=== PATIENT | female | born 1955 | race Caucasian/White ===

== ENCOUNTER → 2021-09-26 07:00 | Outpatient (CLI) | payer MEDICARE, OTHER, SELFPAY ==
[2021-09-26 10:51] LABS: Free T3, Triiodothyronine Free 4.69 pg/mL (2.77-5.27); Free T4, Direct Thyroxine 0.88 ng/dL (0.78-2.19)
[2021-09-26 14:51] LABS: Testosterone 28.2 ng/dL (5.71-77.0)
[2021-09-27 05:29] LABS: Dehydroepiandrosterone Sulfate 91.5 ug/dL (20.4-186.6)
[2021-10-01 09:34] LABS: Triiodothyronine T3 Reverse 13.1 ng/dL (9.2-24.1)
== END ==
PROVIDERS: PCP Family Medicine; Referring Provider Allergy & Immunology; Visit Provider Allergy & Immunology
DX: E03.9 Hypothyroidism, unspecified (principal); N95.9 Unspecified menopausal and perimenopausal disorder
CPT/HCPCS: 36415; 82627; 84403; 84439; 84481; 84482

== ENCOUNTER 2021-12-22 22:37 | Emergency (ER) | payer MEDICARE, OTHER, SELFPAY ==
[2021-12-22 22:45] VITALS: BP 177/79; PULSE 72; RESP 18; TEMP 36.3; O2SAT 96; BMI 21.0
--- NOTE | 2021-12-22 23:00 | PC.NURSE ---
Here with left flank pain that started today - radiation to the left groin - states that she has had kidney stones in the past and this feels like the same - states that she has being treated for a UTI and is on Levaquin - denies nausea/vomiting
--- NOTE | 2021-12-22 23:08 | ED.FEMALEGU ---
HPI - Female Genitourinary General Chief complaint: Urogenital-Female Stated complaint: Kidney stones Time Seen by Provider: 12/22/21 22:39 Source: patient Mode of arrival: Ambulatory History of Present Illness HPI Narrative: 66-year-old female nonsmoker with history of kidney stones many years ago presents with her in the chief complaint of about 2 weeks' worth of left flank pain and an increase in severity of her pain tonight. She states that she has been seen by her primary care provider and is currently on her 2nd round of antibiotics to treat a urinary tract infection. She denies any fever or chills and states that her urinary symptoms such as dysuria, frequency and urgency seemed to be greatly improved but she has ongoing flank pain. She states this pain has been persistent but tonight it intensified and seems to radiate into her groin. She denies any change in bowel habits. Related Data Allergies Allergy/AdvReac Type Severity Reaction Status Date / Time No Known Drug Allergies Allergy Verified 12/22/21 22:51 Review of Systems Review of Systems Narrative: GENERAL: Denies chills, fatigue, malaise, fever, sweats. HEENT: Denies sinus pain, ear pain, sore throat, difficulty swallowing, dizziness. RESPIRATORY: Denies dyspnea, cough, wheezing, hemoptysis, sputum. CARDIOVASCULAR: Denies chest pain, palpitations, orthopnea, edema, GASTROINTESTINAL: Denies nausea, vomiting, abdominal pain, diarrhea, constipation, melena. : See HPI MUSCULOSKELETAL: denies weakness, joint pain, or bony pain SKIN: Denies rash, skin lesions, or other NEUROLOGIC: Denies weakness, headache, numbness, change in speech, confusion, seizures, incoordination. PSYCHIATRIC: No concerning psychosocial issues. 12 point review of systems is negative except for those stated above Exam Narrative Exam Narrative: GENERAL: [66] year old patient appears stated age. Well-developed patient, in no obvious distress, resting comfortably HEAD: Atraumatic. Normocephalic. EYES: Pupils equal round and reactive. Extraocular motions intact. No scleral icterus. No injection or drainage. ENT: Nose without bleeding, purulent drainage. Throat without erythema, tonsillar hypertrophy or exudate. Airway patent. NECK: Trachea midline. Non tender CARDIOVASCULAR: Regular rate and rhythm without murmurs, gallops, or rubs. RESPIRATORY: Clear to auscultation. Breath sounds equal bilaterally. No wheezes, rales, or rhonchi. GASTROINTESTINAL: Abdomen soft, non-tender, nondistended. EXTREMITIES: No edema or joint tenderness. BACK: Nontender without deformity or crepitance. Minimal left-sided CVA tenderness NEURO: AOx3. SKIN: No rash or erythema of visible areas Initial Vital Signs Initial Vital Signs: Vital Signs Temperature 97.4 F L 12/22/21 22:45 Pulse Rate 72 12/22/21 22:45 Respiratory Rate 18 12/22/21 22:45 Blood Pressure 177/79 H 12/22/21 22:45 Pulse Oximetry 96 12/22/21 22:45 Oxygen Delivery Method 12/22/21 22:45 Course Orders Ordered: ED Orders 12/22/21 22:50 Urine Culture Stat Urine Microscopic Stat 12/22/21 23:00 Complete Blood Count AUTO DIFF Stat Comprehensive Metabolic Panel Stat Lipase Stat 12/22/21 23:10 CT kidney ureter bladder (KUB) Stat Discontinued Medications Ketorolac Tromethamine (Ketorolac 30 Mg/Ml Vial) 15 mg IV NOW ONE Stop: 12/22/21 23:11 Ondansetron HCl (Ondansetron 4 Mg/2 Ml Inj) 4 mg IV NOW ONE Stop: 12/22/21 22:54 Reevaluation(s) Reevaluation #1: Significant improvement in above-stated therapies Vital Signs Vital signs: Vital Signs - 8 hr 12/22/21 22:45 Temperature 97.4 F L Pulse Rate 72 Respiratory Rate 18 Blood Pressure 177/79 H Pulse Oximetry 96 Oxygen Delivery Method Room Air MDM - Female Genitourinary Lab Data Result diagrams: 12/22/21 23:00 12/22/21 23:00 Labs: Lab Results 12/22/21 12/22/21 12/22/21 Range/Units 22:50 23:00 23:00 WBC 8.4 (4.5-11.0) X10^3/uL RBC 4.19 (4.0-5.2) X10^6/uL Hgb 12.6 (12.0-16.0) g/dL Hct 37.0 (36-46) % MCV 88.3 (80-100) fL MCH 30.2 (26-34) PG MCHC 34.2 (30-36) % RDW 12.4 (11.6-14.8) % Plt Count 250 (150-400) X10^3/uL Neut % (Auto) 62.2 (50-75) % Lymph % (Auto) 29.7 (25-40) % [place] % (Auto) 6.6 (3-14) % Eos % (Auto) 1.0 L (2-4) % Baso % (Auto) 0.5 (0-2) % Neut # (Auto) 5200 (3291-6963) /uL Lymph # (Auto) 2500 (5018-0478) /uL [place] # (Auto) 600 (0-900) /uL Eos # (Auto) 100 (0-450) /uL Baso # (Auto) 0 (0-100) /uL Sodium 135 L (137-145) mmol/L Potassium 4.2 (3.4-5.1) mmol/L Chloride 101 (98-107) mmol/L Carbon Dioxide 26 (22-32) mmol/L BUN 16 (7-17) mg/dL Creatinine 0.49 L (0.52-1.04) mg/dL Estimated GFR > 60 (>60) mL/min BUN/Creatinine Ratio 32.7 H (6-22) Glucose 126 H (80-110) mg/dL Calcium 9.5 (8.4-10.2) mg/dL Total Bilirubin 0.2 (0.2-1.3) mg/dL AST 24 (14-36) IU/L ALT 22 (<35) IU/L Alkaline Phosphatase 90 (38-126) U/L Total Protein 6.8 (6.3-8.2) g/dL Albumin 3.9 (3.5-5.0) g/dL Globulin 2.9 (1.7-4.1) g/dL Albumin/Globulin Ratio 1.3 (1.0-2.8) Lipase 81 (23-300) U/L Urine RBC 1-5/hpf (0-5/HPF) Urine WBC 0-1/hpf (0-5/HPF) Ur Squamous Epith Cells 0-1 /hpf (0-5/HPF) Urine Bacteria None seen (None) Ur Culture Indicated? Specimen cultured Urine Dip Bedside Urine Glucose Negative Bedside Urine Bilirubin - Negative Bedside Urine Ketone - Negative Urine Specific [place] 1.015 Bedside Urine Occult Blood +++ Bedside Urine pH 6.0 Bedside Urine Protein - Negative Bedside Urine Urobilinogen - Negative Bedside Urine Nitrite - Negative Bedside Urine Leukocytes - Negative Esterase Imaging Data CT scan - abdomen/pelvis: Radiologist's Impression: [address] [address] [address] Scan Report Signed Patient: Katelin Ellington MR#: [id number] : 1955 Acct:[id number] Age/Sex: 66 / F Date of Service: 12/22/21 Loc: ED Accession Number: [id number] ?? Procedure: CT kidney ureter bladder (KUB) Ordering Provider: Avni Burns D.O. PROCEDURE:? CT KIDNEY URETER BLADDER (KUB) ? INDICATIONS:? flank pain, recent UTI, history of stones ? TECHNIQUE:? Axial sections were acquired from the lung bases to the pubic symphysis.? Coronal and sagittal reformats were performed.? For radiation dose reduction, the following was used: ?automated exposure control, adjustment of mA and/or kV according to patient size.? ? COMPARISON:? None. ? FINDINGS:? Image quality:? Excellent.? ? Lung bases:? There is minimal atelectasis.? ? Heart:? Heart is normal in size.? There is a small hiatal hernia. ? URINARY: Right Kidney and Ureter: ? No hydronephrosis.? There is a 0.2 cm nonobstructing stone within the right kidney.? No hydroureter.? ? Left Kidney and Ureter: ? There is an obstructing urinary stone in the proximal left ureter measuring up to 1.0 cm in craniocaudal dimension.? This demonstrates attenuation values of approximately 6737-0435 Hounsfield units.? There is associated mild left hydronephrosis with minimal perinephric stranding.? There are at least 10 additional nonobstructing stones within the left kidney including a few small clustered stones.? The largest stone measures up to approximately 0.5 cm within the inferior pole with attenuation values of approximately 600-700 Hounsfield units.? The ? Bladder:? Normal wall thickness. No stones. ? ? ? ABDOMEN: Liver:? Noncontrast evaluation of the liver demonstrates no discrete? mass. Gallbladder:? Within normal limits without calcified gallstones.? ? Biliary ducts:? No biliary ductal dilatation.? ? Pancreas:? Unremarkable.? ? Spleen:? Normal in size.? ? Adrenal Glands:? No adrenal nodules.? ? ? Stomach and Bowel:? Stomach, small bowel loops, and colon are normal in caliber and wall thickness.? No pericecal inflammatory changes to suggest appendicitis.? There are surgical sutures along the cecum likely related to prior appendectomy.? Peritoneum:? No abnormal intraperitoneal fluid.? No free air.? ? Ventral Wall: ? No hernia.? Abdominal Nodes:? No retroperitoneal or mesenteric adenopathy by size criteria.? Vessels:? Aorta and inferior vena cava are normal in size.? ? PELVIS: Pelvic Organs:? The uterus is lobulated in contour but evaluation is limited in the absence of intravenous contrast.? ? Pelvic Nodes: No enlarged lymph nodes.? Miscellaneous: No inguinal hernias identified. ? ? ? Bones:? Visualized osseous structures demonstrate no suspicious focal lesions. ? IMPRESSION:? ? 1. Obstructing urinary stone in the proximal left ureter with associated mild left hydronephrosis. ? 2. Additional nonobstructing bilateral renal stones as described. ? ? ? Dictated by: Huey Calvo M.D. on 12/23/2021 at 0:13 ? ? Approved by: Huey Calvo M.D. on 12/23/2021 at 0:18 ? MDM Narrative Medical decision making narrative: Patient with reassuring history and physical exam. She shows no sign of sepsis, urine is clear and there is no evidence of infection. Pain is well controlled, she is tolerating orals, vitals are stable. She has no evidence of acute kidney injury. Discharge Plan Departure Referrals: Jama Ramirez MD [Primary Care Provider] -
--- NOTE | 2021-12-22 23:10 | PC.NURSE ---
to CT via stretcher
--- NOTE | 2021-12-22 23:10 | DI.CT.S_ITS ---
PROCEDURE: CT KIDNEY URETER BLADDER (KUB) INDICATIONS: flank pain, recent UTI, history of stones TECHNIQUE: Axial sections were acquired from the lung bases to the pubic symphysis. Coronal and sagittal reformats were performed. For radiation dose reduction, the following was used: automated exposure control, adjustment of mA and/or kV according to patient size. COMPARISON: None. FINDINGS: Image quality: Excellent. Lung bases: There is minimal atelectasis. Heart: Heart is normal in size. There is a small hiatal hernia. URINARY: Right Kidney and Ureter: No hydronephrosis. There is a 0.2 cm nonobstructing stone within the right kidney. No hydroureter. Left Kidney and Ureter: There is an obstructing urinary stone in the proximal left ureter measuring up to 1.0 cm in craniocaudal dimension. This demonstrates attenuation values of approximately 9770-8775 Hounsfield units. There is associated mild left hydronephrosis with minimal perinephric stranding. There are at least 10 additional nonobstructing stones within the left kidney including a few small clustered stones. The largest stone measures up to approximately 0.5 cm within the inferior pole with attenuation values of approximately 600-700 Hounsfield units. The Bladder: Normal wall thickness. No stones. ABDOMEN: Liver: Noncontrast evaluation of the liver demonstrates no discrete mass. Gallbladder: Within normal limits without calcified gallstones. Biliary ducts: No biliary ductal dilatation. Pancreas: Unremarkable. Spleen: Normal in size. Adrenal Glands: No adrenal nodules. Stomach and Bowel: Stomach, small bowel loops, and colon are normal in caliber and wall thickness. No pericecal inflammatory changes to suggest appendicitis. There are surgical sutures along the cecum likely related to prior appendectomy. Peritoneum: No abnormal intraperitoneal fluid. No free air. Ventral Wall: No hernia. Abdominal Nodes: No retroperitoneal or mesenteric adenopathy by size criteria. Vessels: Aorta and inferior vena cava are normal in size. PELVIS: Pelvic Organs: The uterus is lobulated in contour but evaluation is limited in the absence of intravenous contrast. Pelvic Nodes: No enlarged lymph nodes. Miscellaneous: No inguinal hernias identified. Bones: Visualized osseous structures demonstrate no suspicious focal lesions. IMPRESSION: 1. Obstructing urinary stone in the proximal left ureter with associated mild left hydronephrosis. 2. Additional nonobstructing bilateral renal stones as described. Dictated by: Huey Calvo M.D. on 12/23/2021 at 0:13 Approved by: Huey Calvo M.D. on 12/23/2021 at 0:18
--- NOTE | 2021-12-22 23:20 | PC.NURSE ---
Returns to the room from radiology via w/c
[2021-12-22 23:22] LABS: Add Manual Diff / Slide Review NO; Basophils Absolute Auto 0 /uL (0-100); Basophils Percent Auto 0.5 % (0-2); Eosinophils Absolute Auto 100 /uL (0-450); Hemoglobin 12.6 g/dL (12.0-16.0); Lymphocytes Absolute Auto 2500 /uL (1100-4500); Lymphocytes Percent Auto 29.7 % (25-40); Mean Corpuscular HGB Conc 34.2 % (30-36); Mean Corpuscular Hemoglobin 30.2 PG (26-34); Mean Corpuscular Volume 88.3 fL (80-100); Monocytes Absolute Auto 600 /uL (0-900); Monocytes Percent Auto 6.6 % (3-14); Neutrophils Absolute Auto 5200 /uL (1500-7000); Neutrophils Percent Auto 62.2 % (50-75); Platelet Count 250 X10^3/uL (150-400); Red Blood Cell Count 4.19 X10^6/uL (4.0-5.2); Red Cell Distribution Width 12.4 % (11.6-14.8); White Blood Cell Count 8.4 X10^3/uL (4.5-11.0)
[2021-12-22 23:22] LABS: Bacteria Urine None Seen; Culture Indicated Urine Specimen Cultured; RBC Urine 1-5/HPF (0-5/HPF); Squamous Epithelial Cell Urine 0-1 /HPF (0-5/HPF); WBC Urine 0-1/HPF (0-5/HPF)
[2021-12-22 23:32] LABS: Alanine Aminotransferase 22 IU/L (<35); Albumin 3.9 g/dL (3.5-5.0); Albumin Globulin Ratio 1.3 (1.0-2.8); Alkaline Phosphatase 90 U/L (38-126); Aspartate Aminotransferase 24 IU/L (14-36); BUN Creatinine Ratio 32.7 (6-22); Bilirubin Total 0.2 mg/dL (0.2-1.3); Blood Urea Nitrogen 16 mg/dL (7-17); Calcium 9.5 mg/dL (8.4-10.2); Carbon Dioxide 26 mmol/L (22-32); Chloride 101 mmol/L (98-107); Estimated Glomerular Filt Rate > 60 mL/min (>60); Globulin 2.9 g/dL (1.7-4.1); Glucose 126 mg/dL (80-110); HEMOLYSIS < 15 (0-50); Lipase 81 U/L (23-300); Potassium 4.2 mmol/L (3.4-5.1); Sodium 135 mmol/L (137-145); Total Protein 6.8 g/dL (6.3-8.2)
--- NOTE | 2021-12-23 | PC.NURSE ---
MD at bedside - family present
--- NOTE | 2021-12-23 00:30 | PC.NURSE ---
Resting quietly in NAD - no needs voiced at this time - no c/o pain - family at bedside
[2021-12-23 01:09] VITALS: BP 136/73; PULSE 94; RESP 18; O2SAT 97
== END 2021-12-23 01:09 | disposition home or self-care (01) ==
PROVIDERS: Emergency Provider Emergency Medicine; PCP Family Medicine
DX: N20.0 Calculus of kidney (principal); Z87.442 Personal history of urinary calculi
CPT/HCPCS: 36415; 74176; 80053; 81003; 81015; 83690; 85025; 87086; 99283; 99284

== ENCOUNTER → 2021-12-26 09:08 | Outpatient (CLI) | payer MEDICARE, OTHER, SELFPAY ==
[2021-12-26 10:00] LABS: COVID19 -Nasal RAPID Negative (Negative)
== END ==
PROVIDERS: PCP Family Medicine; Visit Provider Urology
DX: Z20.822 Contact with and (suspected) exposure to COVID-19 (principal)
CPT/HCPCS: 76000; 87635

== ENCOUNTER 2021-12-26 12:56 | Day surgery (SDC) | payer MEDICARE, OTHER, SELFPAY ==
[2021-12-26] VITALS (8 sets, daily range): BP systolic 121–157; BP diastolic 61–87; PULSE 73–86; RESP 11–19; TEMP 36.3–36.6; O2SAT 97–100; BMI 21.0
[2021-12-26] MEDS: LACTATED RINGERS 1,000 ML 42 ML IV (13:50)
--- NOTE | 2021-12-26 14:39 | PM.PREOP ---
Pre-operative Note COVID-19 COVID-19 status: Negative Result date/Date tested (Pos, Neg/Pending): 12/26/21 Criteria for continued procedure: Delay expected to result in less-positive ultimate med/surg outcome and Non-surgical alternatives not available or appropriate per current SOC Interval Note History & Physical reviewed/Exam performed by Physician: Yes Changes to H&P: No
[2021-12-26] MEDS: CEFAZOLIN 2 GM/100 ML PREMIX 100 ML IV (15:25)
--- NOTE | 2021-12-26 15:35 | SUR.OPER ---
Lithotomy on padded OR bed, head on pillow, arms secured on padded arm boards at <90 degrees abduction. Legs secured in padded yellow fins stirrups.
--- NOTE | 2021-12-26 15:45 | PM.OP.1 ---
Procedure & Clinicians Procedure: Cystoscopy with left ureteral stent placement Same procedure as scheduled: Yes Indications: This is a 66-year-old female who presented with complaints of left flank pain workup revealed a greater than 1 cm stone in the left ureter. Patient presents this time for cystoscopy with stent placement to alleviate her colic and obstruction. Patient also had a urinary tract infection that had previously been treated taking her last dose of antibiotics yesterday. She is covered with antibiotics for this procedure today. Surgeon: Manpreet Lake Click Yes if Unassisted: Yes Anesthesia Type: General Operative Notes Findings: Findings: External genitalia are normal. Urethral meatus is normal vaginal mucosa is normal and well estrogenized. Urethra is normal along its length the trigone shows normal estrogen estrogenization right and left ureteral orifices in normal position the bladder exhibits moderate trabeculation and no other abnormality. The stone is noted in the proximal 3rd of the ureter. A 7 [place]ian by multi length stent is left in good position in the left renal pelvis and in the bladder under direct vision the string had been removed from the stent. There were several other stones noted in the mid to lower part of the left kidney as well as question of stones on the right. No other abnormalities were noted. Closure Type: not applicable Specimen(s): none sent Applied: other (Seven [place]ian by multi length ureteral stent left in left collecting system with no string) Estimated Blood Loss (mL): 0 Procedure in detail: Procedure in detail: After informed consent was obtained, the patient was identified and brought to the operating room where she was placed in a supine position on the table. Patient then had anesthesia induced and maintained. Ensuring an adequate level of anesthesia the patient was transitioned to the lithotomy position where she was prepped, draped, prepared for Transurethral procedure. After prepping draping, time-out and ensuring an adequate level of anesthesia a 21 Ghanaian cystoscope was passed through the urethra and into the bladder where cystoscopy was performed. The left ureteral orifice was identified and the hybrid wire was passed up to the level of the stone had initially met with some resistance however with just gentle pressure it easily slid by the stone and up and into the upper collecting system under fluoroscopic visualization. The stent was then passed over the wire in a coaxial fashion coiled within the renal pelvis under fluoroscopic visualization had in the bladder under direct vision. Grasping forceps was then inserted and the nylon harness was removed leaving the stent in good position again by direct vision in the bladder by fluoroscopy up in the renal pelvis. The bladder was drained the scope was removed and the patient was awakened having tolerated the procedure well. Patient was transitioned to the postanesthesia care unit to be discharged to home to follow-up in my office in approximately 14 days. There were no complications. Complications: none Post-operative Condition: stable Disposition: PACU Plan for aftercare: Discharge to home follow-up my office in 14 days with FIONA.
[2021-12-26] MEDS: PHENAZOPYRIDINE 100 MG TABLET 200 MG PO (16:02)
[2021-12-26] MEDS: OXYBUTYNIN 5 MG TABLET PO (16:08)
--- NOTE | 2021-12-26 16:43 | SUR.PHASEII ---
Patient ambulated with steady gait to bathroom and voided without difficulty. Tolerated fluids. Provided written and verbal discharge instructions. Pt stated understanding. Discharged patient by wheelchair to private vehicle in stable condition. See flowsheet for assessment details.
== END 2021-12-26 16:32 | disposition home or self-care (01) ==
PROVIDERS: PCP Family Medicine; Referring Provider Urology; Visit Provider Urology
PROC: (CPT 52332; principal; 2021-12-26 14:30)
DX: N20.1 Calculus of ureter (principal); R31.29 Other microscopic hematuria; E03.9 Hypothyroidism, unspecified; Z87.440 Personal history of urinary (tract) infections; Z20.822 Contact with and (suspected) exposure to COVID-19
CPT/HCPCS: 52332; 76000; 81002; 87635; 99214; J0690; J2405; J2704; J3010

== ENCOUNTER → 2022-01-23 11:24 | Outpatient (CLI) | payer MEDICARE, OTHER, SELFPAY ==
--- NOTE | 2022-01-23 11:29 | DI.RAD.S_ITS ---
PROCEDURE: XR KUB INDICATIONS: Kidney stone TECHNIQUE: One view of the abdomen acquired. COMPARISON: None. FINDINGS: Surgical changes and devices: Left-sided ureteral stent is seen. Bowel: Bowel gas pattern is normal. Soft tissues: Multiple ill-defined calcifications are seen scattered in upper, mid and lower pole left kidney measures up to 4-5 mm in size in lower pole of left kidney. No gross right renal calcification is seen. Small calcifications are noted in bilateral lower pelvis and likely represent benign phlebolith. Visualized solid organ contours appear normal in size. Bones: No suspicious bony lesions. IMPRESSION: Numerous left-sided renal stones as above. Left-sided ureteral stent in place. Likely phleboliths in bilateral lower pelvis. Dictated by: Hakeem Duff M.D. on 01/23/2022 at 16:39 Approved by: Hakeem Duff M.D. on 01/23/2022 at 16:40
== END ==
PROVIDERS: PCP Family Medicine; Referring Provider Urology; Visit Provider Urology
DX: N20.0 Calculus of kidney (principal); Z96.0 Presence of urogenital implants
CPT/HCPCS: 74018

== ENCOUNTER → 2022-01-24 08:19 | Outpatient (CLI) | payer MEDICARE, OTHER, SELFPAY ==
[2022-01-24 09:31] LABS: Appearance Urine UA SL CLOUDY; Bilirubin Urine UA NEGATIVE (NEGATIVE); Color Urine UA ORANGE; Glucose Urine UA TRACE g/dL (Negative); Ketones Urine UA NEGATIVE (NEGATIVE); Leukocyte Esterase Urine UA TRACE (NEGATIVE); Nitrite Urine UA POSITIVE (Negative); Occult Blood Urine UA 3+ (Negative); Protein Urine UA 1+ (Negative); Urobilinogen Urine UA 0.2 E.U./dL (0.2)
[2022-01-24 09:41] LABS: Amorphous Sediment Urine 1+; RBC Urine 30-100/HPF (0-5/HPF); Squamous Epithelial Cell Urine 1-5 /HPF (0-5/HPF); WBC Urine 5-10/HPF (0-5/HPF)
[2022-01-24 09:42] LABS: Bacteria Urine Few (2-10); Culture Indicated Urine Specimen Cultured
[2022-01-24 09:58] LABS: COVID19 -Nasal RAPID Negative (Negative)
== END ==
PROVIDERS: PCP Family Medicine; Visit Provider Urology
DX: N20.1 Calculus of ureter (principal); R31.29 Other microscopic hematuria; Z20.822 Contact with and (suspected) exposure to COVID-19
CPT/HCPCS: 81001; 87086; 87635

== ENCOUNTER 2022-01-26 06:48 | Day surgery (SDC) | payer MEDICARE, OTHER, SELFPAY ==
[2022-01-26] VITALS (8 sets, daily range): BP systolic 115–134; BP diastolic 70–80; PULSE 81–100; RESP 12–19; TEMP 36.1–36.8; O2SAT 94–99; BMI 21.0
[2022-01-26] MEDS: LACTATED RINGERS 1,000 ML 21 ML IV (07:14)
[2022-01-26] MEDS: CIPROFLOXACIN 400 MG/200 ML PIGGYBACK 200 MG IV (07:30)
--- NOTE | 2022-01-26 07:35 | PM.PREOP ---
Pre-operative Note COVID-19 COVID-19 status: Negative Result date/Date tested (Pos, Neg/Pending): 01/24/22 Criteria for continued procedure: Delay expected to result in less-positive ultimate med/surg outcome and Non-surgical alternatives not available or appropriate per current SOC Interval Note History & Physical reviewed/Exam performed by Physician: Yes Changes to H&P: No
--- NOTE | 2022-01-26 07:54 | SUR.OPER ---
Supine on padded OR bed, head on pillow, arms padded and tucked at sides, legs uncrossed, safety belt at thigh, tape over blanket over lower legs .
--- NOTE | 2022-01-26 08:28 | P.OP_ITS ---
Procedure & Clinicians Procedure: Left extracorporeal shockwave lithotripsy Same procedure as scheduled: Yes Indications: This is a very pleasant 66-year-old female who presented with complaint of hematuria and flank pain was found to have a large left ureteral calculus. She had a stent placed and time allowed to pass to dilate the ureter. She presents at this time for extracorporeal shockwave lithotripsy to treat and or begin treatment of that stone. The patient does have left lower pole calculi which will not be addressed today. Surgeon: Manpreet Lake Click Yes if Unassisted: Yes Anesthesia Type: General Operative Notes Findings: Left ureteral stent was in good position. Stone was in the mid 3rd of the ur eter. The stone received 2500 shocks at level 8 and appeared to fragment quite well no other abnormality was noted. Closure Type: not applicable Specimen(s): none sent Estimated Blood Loss (mL): 0 Blood products transfused: none Procedure in detail: Procedure in detail: After informed consent, the patient was identified and brought to the operating room where she was placed in a supine position on the Lithotripter. Patient then had anesthesia induced and maintained. After time- out the patient had her stone positioned via the imaging system and shock waves delivered at level 8 with periodic reimaging and re localization to ensure maximal energy delivery to the stone. At 2500 shocks the shockwave head was rotated out and fluoroscopy performed demonstrating fragmentation of the stone. At this point the patient was awakened and taken to the postanesthesia care unit having tolerated the procedure well. Patient will be discharged to home straining her urine to follow up my office in approximately 7-10 days. There were no complications Post-operative Condition: stable Disposition: PACU Plan for aftercare: Patient to be discharged to home straining her urine follow up my office 7-10 days
[2022-02-01 17:52] LABS: Ca oxalate monohydr 10 % (.); Size <1 mm (.)
== END 2022-01-26 09:16 | disposition home or self-care (01) ==
PROVIDERS: PCP Family Medicine; Referring Provider Urology; Visit Provider Urology
PROC: (CPT 50590; principal; 2022-01-26 07:45)
DX: N20.1 Calculus of ureter (principal); Z96.0 Presence of urogenital implants; Z87.440 Personal history of urinary (tract) infections
CPT/HCPCS: 50590; 82365; J0744; J1100; J1885; J2250; J2405; J2704; J3010

== ENCOUNTER → 2022-01-31 09:40 | Outpatient (CLI) | payer MEDICARE, OTHER, SELFPAY ==
--- NOTE | 2022-01-31 09:42 | DI.RAD.S_ITS ---
PROCEDURE: XR KUB INDICATIONS: Kidney stones TECHNIQUE: One view of the abdomen acquired. COMPARISON: [facility], CR, XR KUB, 01/23/2022, 11:42. FINDINGS: Surgical changes and devices: Left nephroureteral stent. Surgical clips projecting over the right mid abdomen. Bowel: Paucity of bowel gas. Gas in the right colon, nonspecific. Soft tissues: A collection of several calcifications projects over the lower pole of the left kidney and there are several other scattered upper and mid pole left calcifications. The possible left mid ureteral calcification now appears fragmented compared to the prior study. No change in position. There may be a small right intrarenal calcification, the right renal shadow is obscured by bowel gas. There are several round pelvic phleboliths. Bones: No suspicious bony lesions. IMPRESSION: 1. Probable fragmentation of the left mid ureteral calcification. No change in position. 2. Several other intrarenal calculi, stable in size, position, and number. 3. Stable position of left nephroureteral stent. Dictated by: Gracia Valdes M.D. on 01/31/2022 at 12:26 Approved by: Gracia Valdes M.D. on 01/31/2022 at 12:29
== END ==
PROVIDERS: PCP Family Medicine; Referring Provider Urology; Visit Provider Urology
DX: N20.1 Calculus of ureter (principal); Z96.0 Presence of urogenital implants
CPT/HCPCS: 74018

== ENCOUNTER → 2022-02-14 13:19 | Outpatient (CLI) | payer MEDICARE, OTHER, SELFPAY ==
--- NOTE | 2022-02-14 13:21 | DI.RAD.S_ITS ---
PROCEDURE: XR KUB INDICATIONS: Evaluate ureteral calculus TECHNIQUE: One view of the abdomen acquired. COMPARISON: [facility], , XR KUB, 01/31/2022, 9:46. FINDINGS: Surgical changes and devices: None. Bowel: Bowel gas pattern is normal. Soft tissues: No suspicious abdominal calcifications. Visualized solid organ contours appear normal in size. Left ureteral stent is well positioned. Several calcifications are present in the left mid ureter, similar to prior x-ray. Pelvic phleboliths are present. Bones: No suspicious bony lesions. IMPRESSION: 1. Left ureteral stent is well positioned. 2. Several calcifications are present in the left mid ureter, unchanged. Dictated by: Matthew Sanchez M.D. on 02/14/2022 at 14:38 Approved by: Matthew Sanchez M.D. on 02/14/2022 at 14:48
== END ==
PROVIDERS: PCP Family Medicine; Referring Provider Urology; Visit Provider Urology
DX: N20.1 Calculus of ureter (principal)
CPT/HCPCS: 74018

== ENCOUNTER → 2022-02-15 08:03 | Outpatient (CLI) | payer MEDICARE, OTHER, SELFPAY ==
[2022-02-23 09:12] LABS: Ca oxalate dihydrate 10 % (.); Ca oxalate monohydr 90 % (.); Size 3x2 mm (.)
== END ==
PROVIDERS: PCP Family Medicine; Visit Provider Urology
DX: N20.1 Calculus of ureter (principal); R31.29 Other microscopic hematuria; Z87.440 Personal history of urinary (tract) infections
CPT/HCPCS: 81002; 82365

== ENCOUNTER → 2022-02-28 10:41 | Outpatient (CLI) | payer MEDICARE, OTHER, SELFPAY ==
--- NOTE | 2022-02-28 10:44 | DI.RAD.S_ITS ---
PROCEDURE: XR KUB INDICATIONS: Left ureteral calculus TECHNIQUE: One view of the abdomen acquired. COMPARISON: [facility], CT, CT KIDNEY URETER BLADDER (KUB), 12/22/2021, 23:19. [facility], CR, XR KUB, 02/14/2022, 13:26. [facility], CR, XR KUB, 01/31/2022, 9:46. FINDINGS: A left ureteral stent is present, similar in position to before. Multiple small stones project over the left kidney, inferior kidney greater in number than superior kidney as before. Two small stones projected adjacent to the proximal aspect of the ureteral stent. Multiple pelvic phleboliths redemonstrated. No pathologically dilated gas-filled loops of bowel. IMPRESSION: Left ureteral stent is in similar position to before. Two small calcifications project adjacent to the proximal portion of the ureteral stent. Multiple left renal stones redemonstrated. Dictated by: Ceasar Valverde M.D. on 02/28/2022 at 19:54 Approved by: Ceasar Valverde M.D. on 02/28/2022 at 19:58
== END ==
PROVIDERS: PCP Family Medicine; Referring Provider Urology; Visit Provider Urology
DX: N20.2 Calculus of kidney with calculus of ureter (principal); Z96.0 Presence of urogenital implants
CPT/HCPCS: 74018

== ENCOUNTER → 2022-03-01 08:00 | Outpatient (CLI) | payer MEDICARE, OTHER, SELFPAY ==
[2022-03-08 13:13] LABS: Ca oxalate monohydr 100 % (.)
== END ==
PROVIDERS: PCP Family Medicine; Visit Provider Urology
DX: N20.2 Calculus of kidney with calculus of ureter (principal); R31.29 Other microscopic hematuria; R10.13 Epigastric pain; R10.9 Unspecified abdominal pain; Z87.440 Personal history of urinary (tract) infections
CPT/HCPCS: 82365; 99215

== ENCOUNTER → 2022-03-14 10:57 | Outpatient (CLI) | payer MEDICARE, OTHER, SELFPAY ==
--- NOTE | 2022-03-14 10:59 | DI.RAD.S_ITS ---
PROCEDURE: XR KUB INDICATIONS: Kidney stones TECHNIQUE: One view of the abdomen acquired. COMPARISON: [facility], CR, XR KUB, 02/28/2022, 10:57. [facility], CR, XR KUB, 02/14/2022, 13:26. [facility], CT, CT KIDNEY URETER BLADDER (KUB), 12/22/2021, 23:19. FINDINGS: Left ureteral stent redemonstrated, proximal pigtail projects over the left renal pelvis/proximal ureter, distal pigtail projects over the pelvis/urinary bladder. A calcification projects adjacent to the proximal aspect of the stent, another calcification projects adjacent to the mid aspect of the stent. Multiple small stones project over the left inferior kidney as before. Possible small stone projecting over the right mid-inferior kidney. IMPRESSION: Left ureteral stent present as before. Two calcifications project adjacent to the ureteral stent, possible ureteral stones. The distance between the calcifications has increased compared to the prior radiograph, suggesting interval transit of stones, 1 stone may have moved slightly retrograde versus projection artifact. Dictated by: Ceasar Valverde M.D. on 03/14/2022 at 17:31 Approved by: Ceasar Valverde M.D. on 03/14/2022 at 17:35
== END ==
PROVIDERS: PCP Family Medicine; Referring Provider Urology; Visit Provider Urology
DX: N20.1 Calculus of ureter (principal); Z96.0 Presence of urogenital implants
CPT/HCPCS: 74018

== ENCOUNTER → 2022-03-15 10:17 | Outpatient (CLI) | payer MEDICARE, OTHER, SELFPAY ==
[2022-03-23 12:22] LABS: Size 3x1 mm (.)
== END ==
PROVIDERS: PCP Family Medicine; Visit Provider Urology
DX: N20.1 Calculus of ureter (principal); R31.29 Other microscopic hematuria; Z96.0 Presence of urogenital implants
CPT/HCPCS: 81002; 82365; 99214

== ENCOUNTER → 2022-03-23 10:07 | Outpatient (CLI) | payer MEDICARE, SELFPAY ==
[2022-03-23 10:41] LABS: COVID19 -Nasal RAPID Negative (Negative)
== END ==
PROVIDERS: PCP Family Medicine; Visit Provider Urology
DX: Z20.822 Contact with and (suspected) exposure to COVID-19 (principal)
CPT/HCPCS: 87635; C9803

== ENCOUNTER 2022-03-25 09:57 | Emergency (ER) | payer MEDICARE, SELFPAY ==
[2022-03-25 10:06] VITALS: BP 109/63; PULSE 110; RESP 18; TEMP 36.6; O2SAT 100; BMI 21.0
[2022-03-25] MEDS: HYDROMORPHONE 1 MG INJ IV (11:27)
[2022-03-25] MEDS: SODIUM CHLORIDE 0.9% 1,000 ML 1000 ML IV (11:28)
[2022-03-25] MEDS: ONDANSETRON 4 MG/2 ML INJ IV (11:28)
[2022-03-25 11:30] VITALS: BP 147/87; PULSE 77; RESP 24; O2SAT 97
[2022-03-25 12:00] VITALS: PULSE 80; RESP 14; O2SAT 100
[2022-03-25 12:12] LABS: Add Manual Diff / Slide Review NO; Basophils Absolute Auto 0 /uL (0-100); Basophils Percent Auto 0.5 % (0-2); Eosinophils Absolute Auto 100 /uL (0-450); Eosinophils Percent Auto 0.6 % (2-4); Hematocrit 45.9 % (36-46); Hemoglobin 15.3 g/dL (12.0-16.0); Lymphocytes Absolute Auto 2100 /uL (1100-4500); Lymphocytes Percent Auto 24.4 % (25-40); Mean Corpuscular HGB Conc 33.4 % (30-36); Mean Corpuscular Volume 89.6 fL (80-100); Monocytes Absolute Auto 500 /uL (0-900); Monocytes Percent Auto 5.9 % (3-14); Neutrophils Absolute Auto 5800 /uL (1500-7000); Neutrophils Percent Auto 68.6 % (50-75); Platelet Count 269 X10^3/uL (150-400); Red Blood Cell Count 5.12 X10^6/uL (4.0-5.2); Red Cell Distribution Width 13.1 % (11.6-14.8); White Blood Cell Count 8.4 X10^3/uL (4.5-11.0)
[2022-03-25 12:21] LABS: Alanine Aminotransferase 36 IU/L (<35); Albumin 4.7 g/dL (3.5-5.0); Albumin Globulin Ratio 1.4 (1.0-2.8); Alkaline Phosphatase 87 U/L (38-126); Aspartate Aminotransferase 36 IU/L (14-36); Bilirubin Total 0.4 mg/dL (0.2-1.3); Blood Urea Nitrogen 16 mg/dL (7-17); Calcium 9.5 mg/dL (8.4-10.2); Carbon Dioxide 26 mmol/L (22-32); Chloride 103 mmol/L (98-107); Estimated Glomerular Filt Rate > 60 mL/min (>60); Globulin 3.4 g/dL (1.7-4.1); Glucose 110 mg/dL (80-110); HEMOLYSIS < 15 (0-50); Potassium 4.4 mmol/L (3.4-5.1); Sodium 137 mmol/L (137-145); Total Protein 8.1 g/dL (6.3-8.2)
[2022-03-25 12:30] VITALS: BP 123/69; PULSE 80; RESP 18; O2SAT 100
[2022-03-25 13:00] VITALS: BP 123/68; PULSE 78; RESP 16; O2SAT 98
[2022-03-25] MEDS: OXYCODONE/ACETAMINOPHEN 5/325 TABLET 1 TAB PO (13:13)
--- NOTE | 2022-03-25 14:16 | ED_ITS ---
HPI - General Adult General Chief complaint: Urogenital-Female Stated complaint: kidney stones has stents x3 months Time Seen by Provider: 03/25/22 10:02 Source: patient Mode of arrival: Ambulatory History of Present Illness HPI narrative: 67-year-old woman with a long history of kidney stones, stents and lithotripsy who presents complaining of left flank pain radiating into the left lower quadrant. She had a 1 cm stone diagnosed on December 22, was seen by Dr. Lake with a ureteral stent placed on December 25, lithotripsy on January 26 and has an appointment with Dr. Lake tomorrow to re-evaluate stones and consider stent removal. She notes that this episode has been more painful than any of her prior episodes including stents and lithotripsy. She is been using ibuprofen and Tylenol and very rarely Vicodin that she had left over from 2016. Today she began having worsening pain to the point that she was unable to control it and came into the emergency department. She notes that she is had some nausea, heartburn she did have diarrhea multiple times a day for about 2 months but this resolved 2-3 weeks ago. She is not complaining of chest pain, palpitations, fevers. Notes small amounts of hematuria which has been a chronic and ongoing issue for her. Related Data Home Medications Medication Instructions Recorded Confirmed thyroid (pork) 15 mg tablet 15 mg PO DAILY 12/26/21 03/20/22 (Bandera Thyroid) progesterone micronized 200 mg 200 mg PO DAILY 01/26/22 03/20/22 capsule cholecalciferol (vitamin D3) 250 250 mcg PO DAILY 03/15/22 03/20/22 mcg (10,000 unit) capsule Previous Rx's Medication Instructions Recorded phenazopyridine 200 mg tablet 200 mg PO TID PRN Bladder 01/18/22 (Pyridium) irritation #30 tabs tamsulosin 0.4 mg capsule (Flomax) 0.8 mg PO DAILY #90 caps 02/15/22 oxycodone-acetaminophen 5 mg-325 1 tab PO Q6H PRN pain #20 tabs 03/25/22 mg tablet Allergies Allergy/AdvReac Type Severity Reaction Status Date / Time No Known Drug Allergies Allergy Verified 03/15/22 08:12 Patient History Medical History (Updated 03/25/22 @ 14:25 by Marnie Pedraza MD) Arthritis History of urinary tract infection Hx of nephrolithotomy with removal of calculi Left ureteral calculus Microscopic hematuria S/P extracorporeal shock wave therapy (01/26/22) Surgical History Hx of appendectomy Hx of cystoscopy (12/26/21) Family History Father Cancer Social History marital status: number of children: 2 household members: spouse Smoking Status: Never smoker alcohol intake: current Type(s) of exercise: walking frequency: daily Smoking Status: Never smoker alcohol intake frequency: holidays/special occasions only Substance Use Type: does not use Exam Initial Vital Signs Initial Vital Signs: Vital Signs Temperature 98 F 03/25/22 10:06 Pulse Rate 110 H 03/25/22 10:06 Respiratory Rate 18 03/25/22 10:06 Blood Pressure 109/63 03/25/22 10:06 Pulse Oximetry 100 03/25/22 10:06 Oxygen Delivery Method 03/25/22 10:06 General: Healthy appearing, in significant distress. Able to give a complete and coherent history. Well-nourished well-developed HEENT: Moist mucous membranes, normal sclera with reactive pupils, Respiratory: Lungs are clear to auscultation, no wheezing no rales no rhonchi. Full and symmetrical air movement Cardiac: Regular rate and rhythm no murmurs no bruits Abdomen: Soft, mild tenderness in the left flank and left lower quadrant without rebound or guarding. Skin: Warm and dry, no rashes Neurologic: Grossly neurologically intact with no obvious asymmetries or abnormalities Extremities: No trauma, well perfused Psych: Cooperative, appropriate insight and affect Course Orders Ordered: ED Orders 03/25/22 11:00 Complete Blood Count AUTO DIFF Stat Comprehensive Metabolic Panel Stat 03/25/22 11:09 EKG-12 Lead Routine 03/25/22 12:06 UA Complete [Urinalysis and Microscopic] Stat Discontinued Medications Hydromorphone HCl (Hydromorphone 1 Mg Inj) 1 mg IV NOW ONE Stop: 03/25/22 11:22 Last Admin: 03/25/22 11:27 Dose: 1 mg Documented By: JUANY Sodium Chloride (Normal Saline 0.9%) 1,000 mls @ 1,000 mls/hr IV BOLUS ONE Stop: 03/25/22 12:20 Last Infusion: 03/25/22 12:59 Dose: 0 mls/hr Documented By: Admin: 03/25/22 11:28 Dose: 1,000 mls/hr Documented By: JUANY Ketorolac Tromethamine (Ketorolac 30 Mg/Ml Vial) 15 mg IV NOW ONE Stop: 03/25/22 11:21 Last Admin: 03/25/22 11:40 Dose: Not Given Documented By: JUANY Ondansetron HCl (Ondansetron 4 Mg/2 Ml Inj) 4 mg IV NOW ONE Stop: 03/25/22 11:22 Last Admin: 03/25/22 11:28 Dose: 4 mg Documented By: JUNAY Oxycodone/Acetaminophen (Oxycodone/Acetaminophen 5/325 Tablet) 1 tab PO NOW ONE Stop: 03/25/22 13:00 Last Admin: 03/25/22 13:13 Dose: 1 tab Documented By: JENN Vital Signs Vital signs: Vital Signs - 8 hr 03/25/22 10:06 03/25/22 11:30 03/25/22 12:00 Temperature 98 F Pulse Rate 110 H 77 80 Respiratory Rate 18 24 14 Blood Pressure 109/63 147/87 H Pulse Oximetry 100 97 100 Oxygen Delivery Method Room Air Room Air Room Air 03/25/22 12:30 03/25/22 13:00 Temperature Pulse Rate 80 78 Respiratory Rate 18 16 Blood Pressure 123/69 123/68 Pulse Oximetry 100 98 Oxygen Delivery Method Room Air Room Air Medical Decision Making Lab Data Result diagrams: 03/25/22 11:00 03/25/22 11:00 Labs: Lab Results 03/25/22 03/25/22 Range/Units 11:00 11:00 WBC 8.4 (4.5-11.0) X10^3/uL RBC 5.12 (4.0-5.2) X10^6/uL Hgb 15.3 (12.0-16.0) g/dL Hct 45.9 (36-46) % MCV 89.6 (80-100) fL MCH 30.0 (26-34) PG MCHC 33.4 (30-36) % RDW 13.1 (11.6-14.8) % Plt Count 269 (150-400) X10^3/uL Neut % (Auto) 68.6 (50-75) % Lymph % (Auto) 24.4 L (25-40) % Osborne % (Auto) 5.9 (3-14) % Eos % (Auto) 0.6 L (2-4) % Baso % (Auto) 0.5 (0-2) % Neut # (Auto) 5800 (0110-6805) /uL Lymph # (Auto) 2100 (0409-5425) /uL Osborne # (Auto) 500 (0-900) /uL Eos # (Auto) 100 (0-450) /uL Baso # (Auto) 0 (0-100) /uL Sodium 137 (137-145) mmol/L Potassium 4.4 (3.4-5.1) mmol/L Chloride 103 (98-107) mmol/L Carbon Dioxide 26 (22-32) mmol/L BUN 16 (7-17) mg/dL Creatinine 0.50 L (0.52-1.04) mg/dL Estimated GFR > 60 (>60) mL/min BUN/Creatinine Ratio 32.0 H (6-22) Glucose 110 (80-110) mg/dL Calcium 9.5 (8.4-10.2) mg/dL Total Bilirubin 0.4 (0.2-1.3) mg/dL AST 36 (14-36) IU/L ALT 36 H (<35) IU/L Alkaline Phosphatase 87 (38-126) U/L Total Protein 8.1 (6.3-8.2) g/dL Albumin 4.7 (3.5-5.0) g/dL Globulin 3.4 (1.7-4.1) g/dL Albumin/Globulin Ratio 1.4 (1.0-2.8) MDM Narrative Medical decision making narrative: MDM CC: Left flank pain Complicating co-morbidities: Known left ureteral stent, 1 cm stone post lithotripsy early January. Prior history of multiple kidney stones and similar treatment. Corroborating data: Data collected from: patient, Medical records reviewed: Urology Differential considered: Recurrent kidney stone, ureteral stent irritation, pyelonephritis, diverticulitis, appendicitis, bowel obstruction, urinary tract infection Exam documented above, pertinent findings include: Pain consistent with nephrolithiasis without rebound or guarding on abdominal exam Lab Test results independently reviewed as above. Pertinent findings: No elevated white blood cell count to suggest significant infection or sepsis. Chemistries are unremarkable with no acute renal failure Imaging studies independently reviewed: CT scan from December 22 and multiple x-ray KUBs all documenting kidney stone as described above. Repeating imaging today was discussed as an option and with shared decision-making we opted to not repeat a CT scan. Treatments: Significantly better after a small dose of hydromorphone and a L of fluid along with Zosyn. Re-evaluations: On re-evaluation patient is feeling significantly better. Went over the need for use of medications when she is hurting this much. Today she did note that she took 2 hydrocodone when the pain was severe and it was not adequate control pain. At this point with pain adequately controlled, I will give her a prescription for Percocet. A single Percocet given at the end as the hydrocodone is wearing off is continuing to work nicely for pain control. She has Zofran available at home. She is an appointment scheduled tomorrow with Dr. Lake to follow-up on this. There is no evidence of additional or secondary complications. No UTI, sepsis pyelonephritis or acute renal failure. Diagnosis: Left kidney stone, ureteral stent, ureteral pain Disposition: see below, along with detailed discharge instructions that have been reviewed with patient as well as indications for ED re-evaluation and additional outpatient follow up Discharge Plan Departure Patient Disposition: Home Clinical Impression: Left ureteral calculus, Microscopic hematuria Instructions: DI for Kidney Stones Activity Restrictions/Additional Instructions: Thank you for coming in today I am sorry you are suffering so much with this stone and this stent. I did not find an alternate explanation for your pain today. Your lab work was reassuring with no evidence of infection, kidney infection, bladder infection, and your pain was actually relatively easily controlled with an initial dose of narcotics. I am going to suggest that you be a bit more assertive with using your home narcotics and Zofran to avoid getting to the level of pain that you are ex periencing this morning. When you feel your Percocet prescription today, please make sure you also have stool softeners available as narcotics will cause constipation. [email or web address] It is important that you keep your follow-up appointment with Dr. Lake tomorrow If you find that you are getting worse or develop any new symptoms, please feel free to return to the emergency department for further evaluation. Prescriptions: New oxycodone-acetaminophen 5-325 mg tablet 1 tab PO Q6H PRN (Reason: pain) Qty: 20 0RF No Action phenazopyridine [Pyridium] 200 mg tablet 200 mg PO TID PRN (Reason: Bladder irritation) Qty: 30 0RF progesterone micronized 200 mg capsule 200 mg PO DAILY tamsulosin [Flomax] 0.4 mg capsule 0.8 mg PO DAILY Qty: 90 3RF cholecalciferol (vitamin D3) 250 mcg (10,000 unit) capsule 250 mcg PO DAILY thyroid (pork) [Bandera Thyroid] 15 mg tablet 15 mg PO DAILY Referrals: Jama Ramirez MD [Primary Care Provider] - Stand Alone Forms: Patient Portal/API
[2022-03-25 14:37] VITALS: BP 117/57; PULSE 87; O2SAT 96
== END 2022-03-25 14:38 | disposition home or self-care (01) ==
PROVIDERS: Emergency Provider Emergency Medicine; PCP Family Medicine
DX: N20.1 Calculus of ureter (principal); R31.29 Other microscopic hematuria; Z87.442 Personal history of urinary calculi
CPT/HCPCS: 80053; 85025; 93005; 93010; 96361; 96374; 96375; 99284; J1170; J1885; J2405

== ENCOUNTER 2022-03-26 09:33 | Day surgery (SDC) | payer MEDICARE, SELFPAY ==
[2022-03-26] VITALS (12 sets, daily range): BP systolic 119–174; BP diastolic 72–104; PULSE 80–125; RESP 14–19; TEMP 36.2–37.1; O2SAT 93–98; BMI 20.9
[2022-03-26] MEDS: LACTATED RINGERS 1,000 ML 21 ML IV ×2 (10:24→12:55)
--- NOTE | 2022-03-26 11:37 | PM.PREOP ---
Pre-operative Note COVID-19 COVID-19 status: Negative Result date/Date tested (Pos, Neg/Pending): 03/23/22 Criteria for continued procedure: Continuing or worsening of significant or severe pain and Delay expected to result in less-positive ultimate med/surg outcome Interval Note History & Physical reviewed/Exam performed by Physician: Yes Changes to H&P: No
[2022-03-26] MEDS: CEFAZOLIN 2 GM/100 ML PREMIX 100 ML IV (12:15)
--- NOTE | 2022-03-26 12:45 | SUR.OPER ---
Lithotomy on padded OR bed, head on pillow, arms secured on padded arm boards at <90 degrees abduction. Legs secured in padded yellow fins stirrups.
--- NOTE | 2022-03-26 13:58 | P.OP_ITS ---
Procedure & Clinicians Procedure: Left ureteroscopy with laser lithotripsy, basketing of stone fragments, stent removal and stent placement Same procedure as scheduled: Yes Indications: This is a pleasant 67-year-old female who presented with a large ureteral calcu michel. She had a stent placed and then later underwent extracorporeal shockwave lithotripsy. She is failed to pass all the fragments and presents this time for ureteroscopic treatment to clear her stones. Surgeon: Manpreet Lake Click Yes if Unassisted: Yes Anesthesia Type: General Operative Notes Findings: Findings: External genitalia and urethral meatus are normal. The urethra is normal along its length with normal mucosa. The right ureteral orifice in normal position with clear efflux. There was minimal bullous edema around the stent in the left ureteral orifice. There was minimal encrustation on the stent. There are no other abnormalities within the bladder. As it turned out there were 4 fragments in the ureter 3 of which could be basket at 1 was too large and required laser treatment to fragmented. There were stones in the left lower pole these were not visualized as they were not the target of our treatment today. No other abnormalities were noted in the ureter. The stones will be sent for pathologic examination and compositional analysis. A 7 Bhutanese by multi length stent was left in good position in the left collecting system with a string still attached. Closure Type: not applicable Specimen(s): other (Stone fragments for compositional analysis) Applied: other (7 Bhutanese by multi length stent left collecting system string left attached) Estimated Blood Loss (mL): 5 Procedure in detail: Procedure in detail: After informed consent was obtained, the patient was identified and brought to the operating room where she was placed in a supine position on the table. The patient then had anesthesia induced and maintained. Ensuring an adequate level of anesthesia the patient was transitioned to the lithotomy position. Once in the lithotomy position she was prepped, draped, prepared for transurethral procedure. After time-out, ensuring an adequate level anesthesia a 21 Bhutanese cystoscope was passed through the urethra and into the bladder were cystoscopy was performed. The stent was then grasped and the distal end brought out the meatus. Guidewire was passed up through the stent and positioned in the collecting system. The stent was in in a coaxial fashion backed out leaving the wire in place. This was reserved as a safety wire. Cystoscope was once again reinserted and a 2nd guidewire passed up into the collecting system this will be used as the working wire. The cystoscope was removed and the flexible ureteral scope was passed over the wire up into the collecting system. The ureter was visualized. And working from distal to proximal 3 stones were removed. The 4th stone was engaged but turned out
--- NOTE | 2022-03-26 14:06 | PM.OP.1 ---
Procedure & Clinicians Procedure: Left ureteroscopy with laser lithotripsy, basketing of stone fragments, stent removal and stent placement Same procedure as scheduled: Yes Indications: This is a pleasant 67-year-old female who presented with a large ureteral calculus. She had a stent placed and then later underwent extracorporeal shockwave lithotripsy. She is failed to pass all the fragments and presents this time for ureteroscopic treatment to clear her stones. Surgeon: Manpreet Lake Click Yes if Unassisted: Yes Anesthesia Type: General Operative Notes Findings: Findings: External genitalia and urethral meatus are normal. The urethra is normal along its length with normal mucosa. The right ureteral orifice in normal position with clear efflux. There was minimal bullous edema around the stent in the left ureteral orifice. There was minimal encrustation on the stent. There are no other abnormalities within the bladder. As it turned out there were 4 fragments in the ureter 3 of which could be basket at 1 was too large and required laser treatment to fragmented. There were stones in the left lower pole these were not visualized as they were not the target of our treatment today. No other abnormalities were noted in the ureter. The stones will be sent for pathologic examination and compositional analysis. A 7 Grenadian by multi length stent was left in good position in the left collecting system with a string still attached. Closure Type: not applicable Specimen(s): other (Stone fragments for compositional analysis) Applied: other (7 Grenadian by multi length stent left collecting system string left attached) Estimated Blood Loss (mL): 5 Procedure in detail: Procedure in detail: After informed consent was obtained, the patient was identified and brought to the operating room where she was placed in a supine position on the table. The patient then had anesthesia induced and maintained. Ensuring an adequate level of anesthesia the patient was transitioned to the lithotomy position. Once in the lithotomy position she was prepped, draped, prepared for transurethral procedure. After time-out, ensuring an adequate level anesthesia a 21 Grenadian cystoscope was passed through the urethra and into the bladder were cystoscopy was performed. The stent was then grasped and the distal end brought out the meatus. Guidewire was passed up through the stent and positioned in the collecting system. The stent was in in a coaxial fashion backed out leaving the wire in place. This was reserved as a safety wire. Cystoscope was once again reinserted and a 2nd guidewire passed up into the collecting system this will be used as the working wire. The cystoscope was removed and the flexible ureteral scope was passed over the wire up into the collecting system. The ureter was visualized. And working from distal to proximal 3 stones were removed. The 4th stone was engaged but turned out but turned out to be too large to be removed safely therefore it was disengaged the laser fiber was inserted and laser energy applied to the stone fragmenting it into 2 fragments. Each of these in turn was then basketed and removed. The ureteral scope was once again via the use of a dual-lumen catheter and working wire passed up and into the collecting system. This occurred with each of the previous 3 stone fragments also. The scope was then used to visualize the renal pelvis and ureter. No large fragments remained there was dust and a few small clots. The fragments were evacuated from the bladder and collected. The were safety wire was then backloaded through the cystoscope and the scope inserted. Stent was then passed over the wire and up into the collecting system and a coaxial fashion. It was position of the renal pelvis under fluoroscopic visualization and in the bladder under direct vision. With the stent in good position the scope was removed leaving the string in place. The scope was reinserted the bladder drained and cystoscopy was performed ensuring that all fragments had been removed from the bladder. The string was then trimmed after the scope had been removed and the bladder was drained the patient was awakened taken to the postanesthesia care unit having tolerated the procedure well there were no complications the patient will be discharged to home. Complications: none Post-operative Condition: stable Disposition: PACU Plan for aftercare: Patient to be discharged to home to follow up in my office in 10-14 days and potentially on this coming for stent removal.
[2022-03-26] MEDS: ONDANSETRON 4 MG/2 ML INJ IV (14:42)
[2022-03-26] MEDS: fentaNYL 100 MCG/2 ML INJ IV (14:53)
[2022-03-26] MEDS: OXYCODONE/ACETAMINOPHEN 5/325 TABLET 1 TAB PO ×2 (15:12→16:28)
--- NOTE | 2022-03-26 16:01 | SUR.PHASEII ---
Spoke with Dr Mares on telephone. Informed of patient pain and recieved order for 2nd dose Percocet 5/325mg
[2022-03-31 11:00] LABS: Ca oxalate dihydrate 20 % (.); Ca oxalate monohydr 80 % (.); Size 3x5 mm (.)
== END 2022-03-26 16:40 | disposition home or self-care (01) ==
PROVIDERS: PCP Family Medicine; Referring Provider Urology; Visit Provider Urology
PROC: (CPT 52356; principal; 2022-03-26 11:00)
DX: N20.1 Calculus of ureter (principal); Z87.440 Personal history of urinary (tract) infections
CPT/HCPCS: 52356; 76000; 82365; 82962; J0690; J1100; J1885; J2405; J2704; J3010

== ENCOUNTER → 2022-04-06 12:35 | Outpatient (CLI) | payer MEDICARE, SELFPAY ==
[2022-04-06 14:02] LABS: Calcium 9.6 mg/dL (8.4-10.2); Uric Acid 4.1 mg/dL (2.5-6.2)
[2022-04-10 15:07] LABS: Calcium 9.7 mg/dL (8.7-10.3); Parathyroid Hormone, Intact 31 pg/mL (15-65)
== END ==
PROVIDERS: PCP Family Medicine; Referring Provider Urology; Visit Provider Urology
DX: N20.2 Calculus of kidney with calculus of ureter (principal); Z87.440 Personal history of urinary (tract) infections
CPT/HCPCS: 36415; 81002; 82310; 83970; 84550; 99213

== ENCOUNTER → 2022-04-23 13:30 | Outpatient (ROUT) | payer MEDICARE, SELFPAY ==
[2022-04-26 09:38] LABS: Ca oxalate dihydrate 10 % (.); Ca oxalate monohydr 90 % (.); Size 5x5 mm (.)
== END ==
PROVIDERS: PCP Family Medicine; Visit Provider Urology
DX: N20.0 Calculus of kidney (principal)
CPT/HCPCS: 82365

== ENCOUNTER → 2022-05-18 11:19 | Outpatient (CLI) | payer MEDICARE, SELFPAY ==
[2022-05-18 13:04] LABS: Vitamin D 25 Hydroxy (D3) 78.1 ng/mL (30.0-100.0)
== END ==
PROVIDERS: PCP Family Medicine; Referring Provider Urology; Visit Provider Urology
DX: N20.1 Calculus of ureter (principal); N20.0 Calculus of kidney
CPT/HCPCS: 36415; 82306

== ENCOUNTER → 2022-08-07 09:24 | Outpatient (CLI) | payer MEDICARE, SELFPAY ==
--- NOTE | 2022-08-07 | DI.MG.S_ITS ---
BILATERAL DIGITAL SCREENING MAMMOGRAM 3D/2D WITH CAD: 08/07/2022 CLINICAL: Baseline exam. Routine screening. No prior exams were available for comparison. Both breasts are extremely dense, which lowers the sensitivity of mammography (category d />75% glandular tissue). Current study was also evaluated with a Computer Aided Detection (CAD) system. There are benign calcifications in the right breast. No significant masses, calcifications, or other findings are seen in either breast. IMPRESSION: BENIGN There is no mammographic evidence of malignancy. A 1 year screening mammogram is recommended. Based on the Tyrer Cuzick model (a risk assessment model) the patient's lifetime risk is 12.3% and her 10 year risk is 6.2%. According to the ACR, ACS, and NCCN guidelines, an annual breast MRI exam along with mammogram is recommended if the patient's lifetime risk is 20% or greater. This exam was interpreted at Station ID: [id number]. NOTE: For mammograms, a report in lay terms will be sent to the patient. Approximately 15% of breast malignancies will not be visualized mammographically. In the management of a palpable breast mass, a negative mammogram must not discourage biopsy of a clinically suspicious lesion. Electronically Signed By: Cristian lozano/edinson:08/07/2022 11:59:37 letter sent: Normal Exam ACR BI-RADS Category 2: Benign Finding(s) 3342F
== END ==
PROVIDERS: PCP Family Medicine; Referring Provider Family Medicine; Visit Provider Family Medicine
DX: Z12.31 Encounter for screening mammogram for malignant neoplasm of breast (principal)
CPT/HCPCS: 77063; 77067

== ENCOUNTER → 2022-09-13 12:43 | Outpatient (CLI) | payer MEDICARE, SELFPAY ==
[2022-09-13 14:13] LABS: Free T3, Triiodothyronine Free 4.67 pg/mL (2.77-5.27); Vitamin D 25 Hydroxy (D3) 96.7 ng/mL (30.0-100.0)
[2022-09-13 14:14] LABS: Follicle Stimulating Hormone 32.3 mIU/mL
[2022-09-13 14:30] LABS: Estradiol, Total 133.7 pg/mL
[2022-09-14 05:54] LABS: Labcorp Hemoglobin (Hb) A1c 5.5 % (4.8-5.6)
[2022-09-14 08:36] LABS: Insulin Level Total 53.1 uIU/mL (2.6-24.9)
[2022-09-18 03:41] LABS: Percent Free Testosterone 1.36 % (0.50-2.80); Testosterone Free 0.24 ng/dL (0.10-0.85); Testosterone Total 17.4 ng/dL (7.0-40.0)
[2022-09-21 13:52] LABS: Triiodothyronine T3 Reverse 17.2
== END ==
PROVIDERS: PCP Family Medicine; Referring Provider Allergy & Immunology; Visit Provider Allergy & Immunology
DX: E03.9 Hypothyroidism, unspecified (principal); N95.9 Unspecified menopausal and perimenopausal disorder
CPT/HCPCS: 36415; 82306; 82627; 82670; 83001; 83036; 83525; 84144; 84402; 84403; 84481; 84482

== ENCOUNTER → 2023-10-08 07:15 | Outpatient (CLI) | payer MEDICARE, OTHER, SELFPAY ==
[2023-10-08 07:58] LABS: Add Manual Diff / Slide Review NO; Basophils Absolute Auto 0 /uL (0-100); Basophils Percent Auto 0.5 % (0-2); Eosinophils Absolute Auto 100 /uL (0-450); Eosinophils Percent Auto 1.5 % (2-4); Hematocrit 42.6 % (36-46); Hemoglobin 14.4 g/dL (12.0-16.0); Lymphocytes Absolute Auto 2100 /uL (1100-4500); Lymphocytes Percent Auto 35.3 % (25-40); Mean Corpuscular HGB Conc 33.9 % (30-36); Mean Corpuscular Hemoglobin 31.1 PG (26-34); Mean Corpuscular Volume 91.8 fL (80-100); Monocytes Absolute Auto 400 /uL (0-900); Monocytes Percent Auto 6.3 % (3-14); Neutrophils Absolute Auto 3300 /uL (1500-7000); Neutrophils Percent Auto 56.4 % (50-75); Platelet Count 236 X10^3/uL (150-400); Red Blood Cell Count 4.65 X10^6/uL (4.0-5.2); White Blood Cell Count 5.9 X10^3/uL (4.5-11.0)
[2023-10-08 08:14] LABS: Hemoglobin A1C% w Est Avg Glu 5.1 % (4.0-6.0)
[2023-10-08 08:25] LABS: Alanine Aminotransferase 19 IU/L (<35); Albumin 4.3 g/dL (3.5-5.0); Albumin Globulin Ratio 1.9 (1.0-2.8); Alkaline Phosphatase 72 U/L (38-126); Aspartate Aminotransferase 23 IU/L (14-36); BUN Creatinine Ratio 23.2 (6-22); Bilirubin Total 0.8 mg/dL (0.2-1.3); Blood Urea Nitrogen 13 mg/dL (7-17); Calcium 9.1 mg/dL (8.4-10.2); Carbon Dioxide 24 mmol/L (22-32); Chloride 105 mmol/L (98-107); Cholesterol 206 mg/dL (140-199); Estimated Glomerular Filt Rate > 60 mL/min (>60); Globulin 2.3 g/dL (1.7-4.1); Glucose 104 mg/dL (80-110); HDL Cholesterol 70 mg/dL (40-60); HEMOLYSIS < 15 (0-50); LDL Cholesterol Calculated 114 mg/dL (<100); Potassium 4.8 mmol/L (3.4-5.1); Sodium 135 mmol/L (137-145); Total Protein 6.6 g/dL (6.3-8.2); Triglycerides 111 mg/dL (35-150)
[2023-10-08 08:30] LABS: High Sensitivity CRP - Cardiac 2.9 mg/L (1.0-3.0)
[2023-10-08 08:46] LABS: Free T3, Triiodothyronine Free 4.18 pg/mL (2.77-5.27)
[2023-10-08 09:01] LABS: Ferritin 108 ng/mL (11-264); Testosterone 90.4 ng/dL (5.71-77.0)
[2023-10-08 09:13] LABS: Thyroid Stimulating Hormone < 0.015 uIU/mL (0.47-4.68)
[2023-10-08 09:22] LABS: Vitamin D 25 Hydroxy (D3) 67.3 ng/mL (30.0-100.0)
[2023-10-08 09:32] LABS: Folate > 20.0 ng/mL (2.76-20.0); Vitamin B12 475 pg/mL (239-931)
[2023-10-08 12:21] LABS: Follicle Stimulating Hormone 33.5 mIU/mL
[2023-10-09 03:36] LABS: Homocysteine 6.3 umol/L (0.0-17.2)
[2023-10-10 15:36] LABS: Insulin Level Total 5.8 uIU/mL (2.6-24.9)
[2023-10-14 14:12] LABS: Triiodothyronine T3 Reverse 13.5 ng/dL (.)
== END ==
PROVIDERS: PCP Family Medicine; Referring Provider Allergy & Immunology; Visit Provider Allergy & Immunology
DX: Z01.89 Encounter for other specified special examinations (principal); E03.9 Hypothyroidism, unspecified; N95.9 Unspecified menopausal and perimenopausal disorder; E55.9 Vitamin D deficiency, unspecified; E61.1 Iron deficiency; R73.09 Other abnormal glucose
CPT/HCPCS: 36415; 80053; 80061; 82306; 82607; 82627; 82670; 82728; 82746; 83001; 83036; 83090; 83525; 84144; 84403; 84439; 84443; 84481; 84482; 85025; 86140

== ENCOUNTER → 2023-10-22 13:42 | Outpatient (CLI) | payer MEDICARE, OTHER, SELFPAY ==
--- NOTE | 2023-10-22 13:47 | DI.RAD.S_ITS ---
PROCEDURE: XR FOOT RT MIN 3V INDICATIONS: BUNION TECHNIQUE: 3 views of the foot were acquired. COMPARISON: None. FINDINGS: Bones: The hallucal sesamoids are intact. No acute fracture or dislocation. Joint spaces are well maintained. Soft tissues: No tibiotalar joint effusion. Achilles tendon appears normal. IMPRESSION: No acute bony abnormality. Dictated by: Lori Motley M.D. on 10/22/2023 at 18:48 Approved by: Lori Motley M.D. on 10/22/2023 at 18:50
--- NOTE | 2023-10-22 13:47 | DI.RAD.S_ITS ---
PROCEDURE: XR FOOT LT MIN 3V INDICATIONS: BUNION TECHNIQUE: 3 views of the foot were acquired. COMPARISON: None. FINDINGS: Bones: The hallucal sesamoids are intact. No acute fracture or dislocation. Joint spaces are well maintained. Soft tissues: No tibiotalar joint effusion. Achilles tendon appears normal. IMPRESSION: No acute bony abnormality. Dictated by: Lori Motley M.D. on 10/22/2023 at 18:46 Approved by: Lori Motley M.D. on 10/22/2023 at 18:48
== END ==
PROVIDERS: PCP Family Medicine; Referring Provider Podiatrist Foot & Ankle Surgery; Visit Provider Podiatrist Foot & Ankle Surgery
DX: M21.611 Bunion of right foot (principal); M77.42 Metatarsalgia, left foot
CPT/HCPCS: 73630

== ENCOUNTER → 2024-09-15 07:14 | Outpatient (CLI) | payer MEDICARE, OTHER, SELFPAY ==
[2024-09-15 07:50] LABS: Add Manual Diff / Slide Review NO; Hematocrit 42.3 % (36-46); Hemoglobin 14.2 g/dL (12.0-16.0); Lymphocytes Absolute Auto 2100 /uL (1100-4500); Mean Corpuscular HGB Conc 33.5 % (30-36); Mean Corpuscular Hemoglobin 30.5 PG (26-34); Mean Corpuscular Volume 91.1 fL (80-100); Platelet Count 244 X10^3/uL (150-400)
[2024-09-15 07:59] LABS: Hemoglobin A1C% w Est Avg Glu 4.9 % (4.0-6.0)
[2024-09-15 08:20] LABS: Alanine Aminotransferase 15 IU/L (<35); Albumin 4.1 g/dL (3.5-5.0); Albumin Globulin Ratio 1.6 (1.0-2.8); Alkaline Phosphatase 74 U/L (38-126); Blood Urea Nitrogen 12 mg/dL (7-17); Calcium 9.3 mg/dL (8.4-10.2); Carbon Dioxide 22 mmol/L (22-32); Chloride 107 mmol/L (98-107); Cholesterol 187 mg/dL (140-199); Estimated Glomerular Filt Rate > 60 mL/min (>60); Globulin 2.5 g/dL (1.7-4.1); Glucose 96 mg/dL (70-99); HDL Cholesterol 54 mg/dL (40-60); HEMOLYSIS < 15 (0-50); Magnesium 2.1 mg/dL (1.6-2.3); Potassium 4.5 mmol/L (3.4-5.1); Sodium 137 mmol/L (137-145); Total Protein 6.6 g/dL (6.3-8.2); Triglycerides 100 mg/dL (35-150)
[2024-09-15 08:38] LABS: Vitamin D 25 Hydroxy (D3) 82.6 ng/mL (30.0-100.0)
[2024-09-15 08:39] LABS: Free T3, Triiodothyronine Free 4.95 pg/mL (2.77-5.27)
[2024-09-15 08:54] LABS: Thyroid Stimulating Hormone < 0.015 uIU/mL (0.47-4.68)
[2024-09-15 08:55] LABS: Ferritin 176 ng/mL (11-264)
[2024-09-15 09:14] LABS: Follicle Stimulating Hormone 34.8 mIU/mL; Progesterone, Total 17.70 ng/mL
[2024-09-15 09:28] LABS: Folate 17.9 ng/mL (2.76-20.0); Vitamin B12 997 pg/mL (239-931)
[2024-09-15 09:29] LABS: Estradiol, Total 85.2 pg/mL
[2024-09-16 03:08] LABS: CRP, High Sensitivity 2.97 mg/L (0.00-3.00)
[2024-09-17 05:12] LABS: Insulin Level Total 4.3 uIU/mL (2.6-24.9)
[2024-09-20 01:07] LABS: Magnesium, RBC 6.4 mg/dL (3.7-7.0)
[2024-09-21 02:39] LABS: Triiodothyronine T3 Reverse 16.9 ng/dL (.)
== END ==
PROVIDERS: PCP Family Medicine; Referring Provider Family Medicine; Visit Provider Allergy & Immunology
DX: E03.9 Hypothyroidism, unspecified (principal); N95.9 Unspecified menopausal and perimenopausal disorder
CPT/HCPCS: 36415; 80053; 80061; 82306; 82607; 82627; 82670; 82728; 82746; 83001; 83036; 83090; 83525; 83735; 84144; 84403; 84443; 84481; 84482; 85025; 86140